=== PATIENT | female | born 2000 | race Caucasian/White ===

== ENCOUNTER 2023-03-31 12:53 | Outpatient (CLI) | payer BC, SELFPAY ==
--- NOTE | 2023-03-31 13:00 | CRLHL7_ITS ---
For Patients: As a result of the Cures Act, medical imaging exams and procedure reports are released immediately into your electronic medical record. You may view this report before your referring provider. If you have questions, please contact your health care provider. INDICATION: First trimester scan, establish dates. COMPARISON: None. TECHNIQUE: Real-time weeks-scale imaging of the pelvis was performed. FINDINGS: Sonographic imaging demonstrates a single living intrauterine gestation. The embryo demonstrates a regular cardiac rate measuring 159 beats per minute. The embryo`s crown-rump length measurement of 6.2 cm corresponds to a gestational age of 12 weeks 4 days with a sonographic due date of 10/09/2023. There is a normal-appearing yolk sac. There are no gross abnormalities noted within the embryo at this early state of development. The gestational sac has a normal appearance. There is no evidence of a perigestational hemorrhage. The amount of fluid within the sac appears appropriate for gestational age. The cervix is closed. The myometrium appears normal. The ovaries are of normal size. Corpus luteal cyst left ovary. There are no suspicious fluid collections noted in the cul-de-sac. IMPRESSION: Normal first trimester OB ultrasound exam. Gestational age calculated at 12 weeks 4 days with a sonographic due date of 10/09/2023. Dictated by Javier Garcia MD @ 03/31/2023 2:13:10 PM (Electronically Signed)
== END 2023-03-31 12:54 | disposition home or self-care (01) ==
LOC: US 12:54
PROVIDERS: Visit Provider Advanced Practice Midwife
DX: Z34.91 Encounter for supervision of normal pregnancy, unspecified, first trimester (principal); Z3A.12 12 weeks gestation of pregnancy
CPT/HCPCS: 76801; 86592; 86703; 86762; 86787; 86803; 86850; 86900; 86901; 87086; 87340

== ENCOUNTER 2023-05-25 13:58 | Outpatient (CLI) | payer BC, SELFPAY ==
--- NOTE | 2023-05-25 14:00 | CRLHL7_ITS ---
For Patients: As a result of the Century Cures Act, medical imaging exams and procedure reports are released immediately into your electronic medical record. You may view this report before your referring provider. If you have questions, please contact your health care provider. INDICATION: Evaluate anatomy. COMPARISON: 03/31/2023 TECHNIQUE: Real time weeks scale imaging of the fetus was performed as well as color Doppler analysis of the umbilical vessels. FINDINGS: Sonographic imaging demonstrates a single living intrauterine gestation. Fetus demonstrates a regular cardiac rate of 152 beats per minute. Fetus has a variable position. The placenta lies anteriorly without evidence of placenta previa. The placental edge is located 8.0 cm from the internal cervical os. Amniotic fluid volume appears normal. Single deepest vertical pocket: 5.2 cm. The cervix is closed and measures 3.4 cm in length. The composite ultrasound gestational age is calculated at 20 weeks 2 days with an estimated sonographic due date of 10/10/2023. The estimated weight is 370 grams which lies at the 59th %. The following biometric measurements were obtained: Biparietal diameter: 4.2 cm/19 weeks 5 days 24th% Head circumference: 17.2 cm/19 weeks 6 days 16th% Abdominal circumference: 16.6 cm/20 weeks 5 days 81st% Femur length: 3.2 cm/19 weeks 6 days 22nd% The HC/AC ratio measures: 1.04 range (1.07-1.25) On anatomic survey, there is a normal appearance of the cerebral ventricles, cavum septi pellucidi, cisterna magna and cerebellum. The nose, lips, and facial profile appear normal. The cervical, thoracic and lumbar spine are well visualized and appear normal. There is a normal four-chamber heart view and the left and right ventricular outflow tracts appear normal. The diaphragm and stomach appear normal. The kidneys and bladder also appear normal. There is a normal three-vessel cord and cord insertion site. The four extremities appear normal. IMPRESSION: Normal OB ultrasound exam with concordance of clinical and sonographic dating. No intrinsic abnormalities noted on anatomic survey. Dictated by Javier Garcia MD @ 05/26/2023 10:04:29 AM (Electronically Signed)
== END 2023-05-25 13:59 | disposition home or self-care (01) ==
LOC: US 13:59
PROVIDERS: Visit Provider Advanced Practice Midwife
DX: Z34.92 Encounter for supervision of normal pregnancy, unspecified, second trimester (principal); Z3A.20 20 weeks gestation of pregnancy
CPT/HCPCS: 76805

== ENCOUNTER 2023-07-10 09:32 | Outpatient (CLI) | payer BC, SELFPAY | END 2023-07-10 09:33 | disposition home or self-care (01) | LOC: NFLDREF 07-12 12:28 | PROVIDERS: Visit Provider Advanced Practice Midwife | DX: Z34.82 Encounter for supervision of other normal pregnancy, second trimester (principal); Z3A.27 27 weeks gestation of pregnancy | CPT/HCPCS: 86592 ==

== ENCOUNTER 2023-07-25 17:40 | Outpatient (CLI) | payer BC, SELFPAY ==
--- NOTE | 2023-07-25 18:51 | PC.OBNST ---
NST Note NST Note Start: 07/25/23 18:00 Freq: ONCE Status: Active Protocol: Document 07/25/23 18:30 ABP (Rec: 07/25/23 18:51 ABP [id number]) NST Note 3 Para (# of births) 2 EDC 10/09/23 Gestational Age In Weeks & Days 29 Weeks & 1 Days Patient Presented with Complaint(s) of Decreased movement Other Complaints Decreased movement and sore upper abdominal muscles Reactive Yes Appropriate for Gestational Age Yes TAMMY Reyes RN Date 07/25/23 Reactive Yes Appropriate for Gestational Age Yes TAMMY Ford CNM Date 07/25/23 OB NST charge Yes Complete NST Note via Write Note Yes The provider's electronic signature indicates the NST is reactive/appropriate for gestational age. *Note to provider: If an addendum is required, open the patient's chart and click on the note under the Nurse/Allied Health tab.
== END 2023-07-25 18:35 | disposition home or self-care (01) ==
LOC: OB OUT 17:46 → OB 17:47
PROVIDERS: Visit Provider Advanced Practice Midwife
DX: O36.8130 Decreased fetal movements, third trimester, not applicable or unspecified (principal); Z3A.29 29 weeks gestation of pregnancy
CPT/HCPCS: 59025; 99213

== ENCOUNTER 2023-09-11 15:55 | Outpatient (CLI) | payer BC, SELFPAY | END 2023-09-11 15:56 | disposition home or self-care (01) | LOC: NFLDREF 09-13 06:24 | PROVIDERS: Visit Provider Advanced Practice Midwife | DX: Z34.93 Encounter for supervision of normal pregnancy, unspecified, third trimester (principal) | CPT/HCPCS: 87081; 87653 ==

== ENCOUNTER 2023-10-08 19:27 | Inpatient (IN) | payer BC, SELFPAY ==
[2023-10-08 18:27] VITALS: BP 133/66; PULSE 108; PULSE 109; RESP 18; TEMP 36.6; O2SAT 97
[2023-10-08 19:04] LABS: Amnisure Rom* POSITIVE
[2023-10-08 20:00] VITALS: TEMP 36.7
[2023-10-08] MEDS: CALCIUM CARBONATE 500 MG CHEW PO (20:29)
[2023-10-08 21:00] VITALS: TEMP 36.7
[2023-10-08 22:00] VITALS: TEMP 36.7
--- NOTE | 2023-10-08 22:07 | W.PM.LDBA ---
Subjective History of Present Illness Narrative: Patient is being admitted to Labor and Delivery for SROM at 0800 with clear fluid at home. She startied having contractions aroun 1300. They increased enough by this evening that she decided to be evaluated. SROm was confirmed by a positive amnisure. She is a 22 year old at 39.6 weeks gestation. Her full history and physical was dictated by [] on []. Please see this for details. [] Specific Issues/Plans : Dhruv Every other week visits due to finishing school, cosmetology, per her request. She is done near her due date. 1. Prepregnancy BMI 39 Losing weight prior to , down 9lb at NOB testing Guidelines recommend considering weekly NST beginning at 37 weeks: NST 2. Hx of Vacuum extraction, 1st , due to heart tones COVID: initial series, not boosted Flu: ask during flu season: 08/14/2023 declines TDAP: declines 32wk Mental Health: 08/14/2023 OB Exam Physical Exam Vital signs: Temp Pulse Resp BP Pulse Ox 97.9 F 108 H 18 133/66 97 10/08/23 18:27 10/08/23 18:27 10/08/23 18:27 10/08/23 18:27 10/08/23 18:27
--- NOTE | 2023-10-08 22:11 | PM.OBHPAP1 ---
OB - H&P; HPI Antepartum History of Present Illness Date Seen: 10/08/23 Chief complaint: Maternity Narrative: Patient is being admitted to Labor and Delivery for SROM with clear fluid at 0800. she starting having contractions around 1300. She decided to be evaluated this evening after her contractions increased in frequency and intensity.? She is a 22 year old at 39 Weeks, 6 Days gestation.?She is breasting through some contractions but not not feeling all of them very intensely. She is continuing to leak clear fluid. She declined a SVE on admit but was agreeable to one with my evaluation. She was found to be 2/80/-2 and the cervix is off to the right. We discussed expectant management vs Pitocin augmentation and the risks and benefits of both. She was educated on and is aware of the increased risk of infection after 24 hours of ruptured membranes. she would like to proceed with expectant management. She is agreeable to labor circuits and reevaluating the need for Pitocin around 18 hours after ROM. 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 Specific Issues/Plans : Dhruv Every other week visits due to finishing school, cosmetology, per her request. She is done near her due date. 1. Prepregnancy BMI 39 Losing weight prior to , down 9lb at NOB testing Guidelines recommend considering weekly NST beginning at 37 weeks: NST 2. Hx of Vacuum extraction, 1st , due to heart tones COVID: initial series, not boosted Flu: ask during flu season: 08/14/2023 declines TDAP: declines 32wk Mental Health: 08/14/2023 History of Present Dating criteria: based on 1st trimester US only care: good care (fewer visit at the end due to schooling and social situation ) Ultrasounds: normal 1st trimester US and other (normal anatomy scan) Medical complications: none Labs Blood type: A (+) positive GBS status: negative Review of Systems Status of ROS: Reports: 6 or more systems reviewed and unremarkable except as noted in History and below : Reports: vaginal discharge (SROM) Meds Home Medications and Allergies Home Medications Medication Instructions Recorded Confirmed Type vit no.95-ferrous 1 tab PO DAILY 07/25/23 10/02/23 History fumarate 28 mg-folic acid 800 mcg tablet () Allergies Allergy/AdvReac Type Severity Reaction Status Date / Time No Known Drug Allergies Allergy Verified 10/02/23 15:04 OB - H&P: Exam Physical Exam: Vital signs: Temp Pulse Resp BP Pulse Ox 97.9 F 108 H 18 133/66 97 10/08/23 18:27 10/08/23 18:27 10/08/23 18:27 10/08/23 18:27 10/08/23 18:27 Narrative: Psychiatric:? Alert and oriented x3? HEENT:? Normocephalic, atraumatic? Neck:? Supple without adenopathy or thyromegaly? Lungs:? Clear to auscultation bilaterally? Heart:? Regular rate and rhythm, no murmur, rub or gallop? Abdomen:? Soft, nontender, and gravid? Extremities:? No edema or erythema? Pelvic:? SVE: 2cm/80%/-2? Membrane status:? SROM, clear? presentation:? vertex? FHT:? Moderate Variability.? Positive Accels.? No Decels. Baseline 120.? Morning Sun:? Ctx Q2-4min? OB - A/P Antepartum Assessment and Plan (1) SROM (spontaneous rupture of membranes): Status: Acute (2) Pain during labor: Status: Acute Plan ASSESSMENT:? at 39.6 weeks gestation? GBS negative? Uncomplicated ? PROM ?? PLAN:? 1. Reviewed risks and benefits of augmentation with Pitocin vs expectant management. Pt prefers expectant management at this time. Will consider Pitocin later.? 3. Desires water . Consent signed. Hep C negative.? 4. Candidate for analgesia of choice. Planning unmedicated .? 5. Anticipate ? 7. IV if condition changes and intermittent monitoring unless patient condition changes.? ? Additional Plan Plan: expectant management
[2023-10-08 23:06] VITALS: TEMP 36.9
[2023-10-09] VITALS (82 sets, daily range): BP systolic 80–145; BP diastolic 44–72; PULSE 64–206; RESP 16–18; TEMP 36.5–37.2; O2SAT 78–100
[2023-10-09] MEDS: LACTATED RINGERS 1000 ML 1,000 ML 125 ML IV ×3 (04:23→15:25)
[2023-10-09] MEDS: OXYTOCIN 30 unit/500 ML in NS 30 UNIT/500 ML BAG IVPB (04:24)
--- NOTE | 2023-10-09 08:32 | P.OBPN_ITS ---
Subjective Date Seen: 10/09/23 Narrative: ?Trudy is feeling tired and discouraged this morning with labor pain/co ntractions. Dhruv and Alix? is with her for support. ?She would like to continue with breathing and relaxation for comfort and pain management. Discussed options moving forward this morning. She is uncomfortable with some contractions but they have not been increasing in intensity. Reviewed option to continue with IV Pitocin per protocol, AROM of second bag of membranes if appropriate, taking a short break from Pitocin for rest and restarting again and IV MS with Vistaril for rest offered. She would like to take a 2 hour break from IV Pitocin and then restart per protocol. Declines MS and Vistaril at this time. SVE 4cm/80%/-1 baby not well applied. Did not feel secondary bag with check at this time. Will plan to restart IV Pitocin around 1030 unless she is laboring on her own at that time. Encouraged rest and food now. Salma/Magdalena applied for monitoring, baby has been difficult to keep on the external monitor, offered FSE, pt declined at this time. Objective Exam: VSS, afebrile General Appearance:? Calm, cooperative. ?No acute distress. ? Psychiatric Exam: Alert and oriented, appropriate affect Abdomen: Gravid Ctx: ?Q 2-4 min apart. ? ?Moderate ? FHTs: ?Baseline: 125. ? ? Variability: moderate. ?Accels: +. ? ?Decels: ?-. SVE: 4/80%/-1 Membranes: ?SROM X 24 hours Vital Signs: Last Vital Signs Temp 98.3 F 10/09/23 08:01 Pulse 81 10/09/23 08:01 Resp 16 10/09/23 08:01 BP 125/67 10/09/23 08:01 Pulse Ox 96 10/09/23 01:00 Plan Plan: Assessment:?? at 40.0 gestation?? GBS negative Patient is coping with challenges of labor.?? Labor type: Augmented, Early labor? complicated by: uncomplicated Labor complicated by: PROM? Plan:?? Approximate 2 hour break from IV Pitocin, restart around 1030. Encouraged rest and food, pt may have MS and Vistaril if desired for sleep. Continue with routine intrapartum cares as ordered.?? Patient encouraged to move and change positions to promote physiologic labor and .?? Nonpharmacologic comfort measures per patient preference. Candidate for analgesia of choice if desired. Patient planning waterbirth Anticipate progress to NVD. ?
--- NOTE | 2023-10-09 10:40 | PM.OBPNL ---
Subjective Date Seen: 10/09/23 Narrative: ?Trudy is coping well with labor pain/contractions, she looks and feels more rested at this time and is ready to restart augmentation with IV Pitocin. ?Dhruv is with her for support. ?She would like to continue with breathing and relaxation for comfort and pain management.?She has had two spontaneous variable decelerations that resolved with position change. Objective Exam: VSS, afebrile General Appearance:? Calm, cooperative. ?No acute distress. ? Psychiatric Exam: Alert and oriented, appropriate affect Abdomen: Gravid Ctx: ?Q 2-4 min apart. ?Mild ? ? FHTs: ?Baseline: 120. ? ? Variability: moderate. ?Accels: +. ? ?Decels: ?variables, nonrecurrent . SVE: deferred Membranes: ?SROM X 26 hours Vital Signs: Last Vital Signs Temp 98.4 F 10/09/23 08:31 Pulse 81 10/09/23 08:01 Resp 16 10/09/23 08:31 BP 125/67 10/09/23 08:01 Pulse Ox 96 10/09/23 01:00 Plan Plan: Assessment:?? at 40.0 gestation?? GBS negative Patient is coping well with challenges of labor.?? Labor type: Augmented, Early labor? complicated by: uncomplicated Labor complicated by: PROM? Plan:?? Restart IV Pitocin per protocol Continuous monitoring with argumentation with IV Pitocin Continue with routine intrapartum cares as ordered.?? Patient encouraged to move and change positions to promote physiologic labor and .?? Nonpharmacologic comfort measures per patient preference. Candidate for analgesia of choice if desired. Patient planning waterbirth Anticipate progress to NVD. ?
[2023-10-09] MEDS: CALCIUM CARBONATE 500 MG CHEW PO (11:10)
[2023-10-09] MEDS: LIDOCAINE 2% (PF) 5 ML VIAL EPIDURAL (13:42)
[2023-10-09] MEDS: ROPIVACAINE 0.2 % PF 10 ML INJ 20 MG EPIDURAL (13:42)
[2023-10-09] MEDS: PHENYLEPHRINE 100 MCG/ML SYRINGE IVP ×8 (13:44→15:38)
[2023-10-09] MEDS: fentaNYL 100 MCG/2 ML inj EPIDURAL (13:47)
[2023-10-09] MEDS: ePHEDrine sulfate 5 MG/ML inj 10 MG IVP ×3 (14:34→15:18)
--- NOTE | 2023-10-09 14:55 | P.ANBPRC_ITS ---
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 Partner: suze Bartlett man Lives with: Dhruv and two children (Miguel Angel and Luis Alberto) Pets: 2 dogs Abuse: Denies past/present Special Diet: Denies, pro-metabolic eating; was loosing weight prior to Ok with a blood transfusion: yes Culture or buddhism beliefs: denies RISK FACTORS Exercise Times/wk: walking 2-4x per week Depression/Anxiety: Denies hx of Seat Belt Use: Routinely Smoking: Denies past/present Alcohol/day: Denies while ; none Caffeine: Tea occasionally Drug Use: Denies past/present Chicken Pox: Vaccinated MRSA: Denies What is your current living situation?: I presently have a place to live Problems where you live: no known problems In the past 12 months, utilities in danger of being shut off: no In past 12 months, lack of transportation kept you from medical appts, meetings, work, or getting things needed for daily living: no In the past 12 mos, have been you worried that your food would run out before you had money to buy more?: never true In the past 12 mos, the food you bought just didn't last and you didn't have money to buy more?: never true Smoking Status: Never smoker How often does anyone, including family, friends and others, physically hurt you : never How often does anyone, including family, friends and others, insult or talk down to you: never How often does anyone, including family, friends and others, threaten you with harm: never How often does anyone, including family, friends and others, scream or curse at you: never Little interest or pleasure in doing things: not at all Feeling down, depressed, or hopeless: not at all Meds Home Medications and Allergies Home Medications Medication Instructions Recorded Confirmed Type vit no.95-ferrous 1 tab PO DAILY 07/25/23 10/02/23 History fumarate 28 mg-folic acid 800 mcg tablet () Allergies Allergy/AdvReac Type Severity Reaction Status Date / Time No Known Drug Allergies Allergy Verified 10/02/23 15:04 Results Labs Labs: Laboratory Results - last 24 hr 10/08/23 18:40 Membrane Rupture POSITIVE Vital Signs Vital Signs: Last Vital Signs Temp 98.8 F 10/09/23 12:40 Pulse 93 10/09/23 14:54 Resp 16 10/09/23 12:40 BP 91/51 L 10/09/23 14:54 Pulse Ox 98 10/09/23 14:54 Weight: 109.044 kg Anesthesia Procedures Epidural Insertion Patient Location: OB Start Time: 13:30 Stop Time: 14:30 Start Date: 10/09/23 Stop Date: 10/09/23 Reason for Block: procedure for pain Patient Position: sitting Performed By: Nick Tyler Preanesthetic Checklist: IV checked, risks and benefits discussed, monitors and equipment checked, pre-op evaluation, timeout performed and anesthesia consent Prep: chlorhexidine gluconate Monitoring: blood pressure monitoring, continuous pulse oximetry and heart rate Approach: midline Vertebral Space: lumbar (1-5) Epidural Technique: DARCY saline Needle Type: Tuohy needle Injection Technique: continuous catheter Needle gauge: 17 Needle Length (cm): 10 cm Needle Insertion Depth (cm): 6 Catheter Gauge: 19 Catheter Type: multi-orifice Catheter at skin depth (cm): 12 Test Dose Result: negative and lidocaine 1.5% with epinephrine 1 to 200,000
--- NOTE | 2023-10-09 15:01 | PM.OBPNL ---
Subjective Date Seen: 10/09/23 Narrative: ?Trudy is coping well with labor pain/contractions. ?Dhruv is with her for support. ?She recently got an epidural for comfort and pain management.?She had a second rupture of membranes around 1310 with copious clear fluid then became more painful and requested an epidural for pain and fatigue. She used Nitrous for pain management while waiting for the epidural to be placed. Is currently comfortable with epidural running, feeling only slight pressure with contractions. IV Pitocin was stopped for short time while epidural was placed, restarted and currently running at 4mu/hr. Objective Exam: VSS, afebrile General Appearance:? Calm, cooperative. ?No acute distress. ? Psychiatric Exam: Alert and oriented, appropriate affect Abdomen: Gravid Ctx: ?Q 1-3 min apart. ? ?Moderate ? FHTs: ?Baseline: 120. ? ? Variability: moderate. ?Accels: +. ? ?Decels: ?variable and early, nonrecurrent. SVE: 7/80/-3 Membranes: ?SROM ?X 32 hours Vital Signs: Last Vital Signs Temp 98.8 F 10/09/23 12:40 Pulse 99 10/09/23 14:58 Resp 16 10/09/23 12:40 BP 100/55 L 10/09/23 14:58 Pulse Ox 100 10/09/23 14:59 Contractions Pitocin Rate (mU/min): 4 Assessment Status: Category ll Plan Plan: Assessment:?? at 40.0 gestation?? GBS negative Patient is coping well with challenges of labor.?? Labor type: Augmented,Active labor? Category 2 FHR pattern.? complicated by: uncomplicated Labor complicated by: PROM? Plan:?? Augmentation with IV Pitocin titrate per protocol and patient response. Continue with routine intrapartum cares as ordered.?? Patient encouraged to move and change positions to promote physiologic labor and .?? Nonpharmacologic comfort measures per patient preference. Epidural in place for pain management. Anticipate progress to NVD. ?
[2023-10-09] MEDS: OXYTOCIN 30 unit/500 ML in NS 30 UNIT/500 ML BAG 300 UNIT IVPB (16:02)
--- NOTE | 2023-10-09 16:18 | W.PM.OBVAGDE ---
OB Procedure Vag Delivery Mother Details Mother Details: The patient is a 22 year-old, 3, Para 2, admitted on 10/08/23 at 39.6 Days gestation with SROM. : 3 Para: 3 Weeks Gestation: 40.0 Admission Date: 10/08/23 Additional Details Amniotic Membrane Status: SROM Amniotic Membrane Rupture Date: 10/08/23 Amniotic Membrane Rupture Time: 08:00 Amniotic Membrane Fluid Description: Clear Analgesia/Anesthesia Type: Epidural Waterbirth: No Pitcoin: Yes Intrapartal Events: Labor Augmentation and ROM >18 Hours Delivery augmentation: pitocin Labor Onset: 13:11 Complete: 15:42 Pushin:46 Heart: heart tones during second stage were Category II, for last 9 minutes of pushing variables to 60's with recovery to 90's between pushing, pt made good progress with pushing. Delivery Details Delivery Date: 10/09/23 Delivery Time: 16:01 Route of delivery: Gender: Male Viability: Alive; Heart Rate Present Position at Delivery: OA Delivery Details: 22?y.o?at 40.0 weeks.? Trudy came on 10/08/23 with SROM of clear fluid, she was augmented with IV Pitocin and made slow change overnight. Short break this morning from IV Pitocin for 2 hours then restarted augmentation. She had SROM of second bag of fluid at 1311. She received an epidural for pain management and progressed to complete after that. ? She became complete at 1542.??She pushed in right tilt positions effectively.? Spontaneous vaginal delivery at 1601 of?a viable?male infant.??Delivered in vertex OA position.??Shoulders delivered easily.?There was a cord around the shoulder unable to reduce at delivery, delivered through and cord brought over the shoulder and under the infants arm for delivery of the body Spontaneous cry noted.??Infant placed on maternal abdomen.??Cord?was clamped and cut after a >30 sec delay.?? brought to the warmer for stimulation and further evaluation. At 10 minutes of age infant was pink and crying at the warmer.? Shoulder dystocia: no? Nuchal cord: no? Meconium stained?fluid: no? Water : no? ? ? 5 at 1 minute and 9 at 5 minutes.? ? Placenta delivered spontaneously and?complete?at 1508 with a?3 vessel?cord.?? Bleeding controlled with fundal massage and?pitocin?for AMTSL.? ? Mother and infant were stable after delivery.? ? Lacerations:? 1st degree perineal and right labial laceration, not bleeding, not repaired? ? Bleeding?post delivery?was: minimal. ?The fundus was firm to palpation.? Blood loss: 25?mL.? Blood loss measurement type: QBL? ? ? Sponge,?lap?and needles counts are correct.? Mother and were stable after delivery.? 1 Minute Interval Total Score: 5 5 Minute Interval Total Score: 9 Additional Details Shoulder Dystocia: No Placenta Delivery Time: 15:08 Placental Delivery Description: Spontaneous Procedure Done: Global Blood Loss: 25 Laceration: Perineal - 1st Degree (not bleeding not repaired) Blood Loss Measurement Type: QBL Bakri Used: No Sponge/Need Count Correct: Yes Cord Vessel Description: 3 Vessels, Tight, Around Body and Delivered through Event Summary Status: Mother and were stable after delivery. Disposition: floor
[2023-10-09] MEDS: IBUPROFEN 600 MG TABLET PO (17:26)
[2023-10-09] MEDS: LANOLIN CREAM 1 APPLIC TOPICAL (17:26)
[2023-10-10] MEDS: IBUPROFEN 600 MG TABLET PO ×2 (01:45→08:49)
[2023-10-10 03:31] VITALS: BP 97/68; PULSE 90; RESP 18; TEMP 36.6
--- NOTE | 2023-10-10 07:28 | PM.OBDSVD1 ---
DS: Providers Provider Date Seen: 10/10/23 Date of admission: 10/08/23 19:27 Primary care physician: Not a Local Provider Admitting Clinician: Jerri Irby CNM Attending Physician on discharge: Jerri Irby CNM Date of Discharge: 10/10/23 DS: Diagnosis Discharge Diagnosis (1) Lactating mother: Status: Acute (2) care following vaginal delivery: Status: Acute Exam Narrative: Exam Narrative: GENERAL APPEARANCE:? normal affect, alert, no distress? MOOD:? appropriate? CHEST:? clear to auscultation and percussion? HEART:? regular rate and rhythm? ABDOMEN:? soft, non-tender the uterine fundus is U/2 and is appropriate for the stage of recovery.? PERINEUM:? mild edema of the perineum, there is a 1st degree that is healing well.? EXTREMITIES:? normal and no edema? Const: Vital Signs, click to edit/add: Vital Signs - 24 hr 10/09/23 08:01 10/09/23 08:01 10/09/23 08:31 Temperature 98.3 F 98.4 F Pulse Rate 81 Pulse Rate [Pulse Oximeter] Respiratory Rate 16 16 Blood Pressure 125/67 Blood Pressure [Ri ght Arm] Pulse Oximetry Oxygen Delivery Me thod 10/09/23 09:31 10/09/23 10:38 10/09/23 11:55 Temperature 98.2 F 98.1 F Pulse Rate 84 Pulse Rate [Pulse Oximeter] Respiratory Rate Blood Pressure 110/55 L Blood Pressure [Ri ght Arm] Pulse Oximetry Oxygen Delivery Me thod 10/09/23 11:55 10/09/23 12:40 10/09/23 13:49 Temperature 98.2 F 98.8 F Pulse Rate Pulse Rate [Pulse Oximeter] Respiratory Rate 16 16 Blood Pressure Blood Pressure [Ri ght Arm] Pulse Oximetry 79 L Oxygen Delivery Me thod 10/09/23 13:49 10/09/23 13:49 10/09/23 13:49 Temperature Pulse Rate 206 H Pulse Rate [Pulse Oximeter] Respiratory Rate Blood Pressure 102/72 Blood Pressure [Ri ght Arm] Pulse Oximetry 98 Oxygen Delivery Me thod 10/09/23 13:49 10/09/23 13:54 10/09/23 13:55 Temperature 98.6 F Pulse Rate 120 H Pulse Rate [Pulse Oximeter] Respiratory Rate 16 Blood Pressure 145/69 H Blood Pressure [Ri ght Arm] Pulse Oximetry 99 Oxygen Delivery Me thod 10/09/23 13:57 10/09/23 13:59 10/09/23 14:04 Temperature Pulse Rate Pulse Rate [Pulse Oximeter] Respiratory Rate Blood Pressure Blood Pressure [Ri ght Arm] Pulse Oximetry 93 95 97 Oxygen Delivery Me thod 10/09/23 14:09 10/09/23 14:10 10/09/23 14:14 Temperature Pulse Rate 104 H Pulse Rate [Pulse Oximeter] Respiratory Rate Blood Pressure 136/69 Blood Pressure [Ri ght Arm] Pulse Oximetry 99 99 Oxygen Delivery Me thod 10/09/23 14:17 10/09/23 14:19 10/09/23 14:21 Temperature Pulse Rate 94 Pulse Rate [Pulse Oximeter] Respiratory Rate Blood Pressure 136/65 Blood Pressure [Ri ght Arm] Pulse Oximetry 98 94 Oxygen Delivery Me thod 10/09/23 14:23 10/09/23 14:28 10/09/23 14:30 Temperature Pulse Rate 126 H 112 H 71 Pulse Rate [Pulse Oximeter] Respiratory Rate Blood Pressure 132/57 L 89/48 L 100/52 L Blood Pressure [Ri ght Arm] Pulse Oximetry Oxygen Delivery Me thod 10/09/23 14:32 10/09/23 14:34 10/09/23 14:36 Temperature Pulse Rate 73 67 73 Pulse Rate [Pulse Oximeter] Respiratory Rate Blood Pressure 84/49 L 86/51 L 111/56 L Blood Pressure [Ri ght Arm] Pulse Oximetry 100 Oxygen Delivery Me thod 10/09/23 14:38 10/09/23 14:39 10/09/23 14:40 Temperature Pulse Rate 71 69 Pulse Rate [Pulse Oximeter] Respiratory Rate Blood Pressure 114/57 L 95/49 L Blood Pressure [Ri ght Arm] Pulse Oximetry 99 Oxygen Delivery Me thod 10/09/23 14:42 10/09/23 14:44 10/09/23 14:46 Temperature Pulse Rate 71 82 78 Pulse Rate [Pulse Oximeter] Respiratory Rate Blood Pressure 97/55 L 87/51 L 106/52 L Blood Pressure [Ri ght Arm] Pulse Oximetry 99 Oxygen Delivery Me thod 10/09/23 14:48 10/09/23 14:49 10/09/23 14:50 Temperature Pulse Rate 83 81 Pulse Rate [Pulse Oximeter] Respiratory Rate Blood Pressure 104/53 L 104/57 L Blood Pressure [Ri ght Arm] Pulse Oximetry 100 Oxygen Delivery Me thod 10/09/23 14:52 10/09/23 14:54 10/09/23 14:56 Temperature Pulse Rate 88 93 92 Pulse Rate [Pulse Oximeter] Respiratory Rate Blood Pressure 102/53 L 91/51 L 90/51 L Blood Pressure [Ri ght Arm] Pulse Oximetry 98 Oxygen Delivery Me thod 10/09/23 14:58 10/09/23 14:59 10/09/23 15:01 Temperature Pulse Rate 99 83 Pulse Rate [Pulse Oximeter] Respiratory Rate Blood Pressure 100/55 L 90/51 L Blood Pressure [Ri ght Arm] Pulse Oximetry 100 Oxygen Delivery Me thod 10/09/23 15:04 10/09/23 15:06 10/09/23 15:08 Temperature Pulse Rate 90 81 72 Pulse Rate [Pulse Oximeter] Respiratory Rate Blood Pressure 80/44 L 88/51 L 97/53 L Blood Pressure [Ri ght Arm] Pulse Oximetry 100 Oxygen Delivery Me thod 10/09/23 15:09 10/09/23 15:10 10/09/23 15:12 Temperature Pulse Rate 65 77 Pulse Rate [Pulse Oximeter] Respiratory Rate Blood Pressure 99/50 L 98/52 L Blood Pressure [Ri ght Arm] Pulse Oximetry 100 Oxygen Delivery Me thod 10/09/23 15:14 10/09/23 15:16 10/09/23 15:18 Temperature Pulse Rate 103 H 76 83 Pulse Rate [Pulse Oximeter] Respiratory Rate Blood Pressure 93/47 L 98/51 L 87/51 L Blood Pressure [Ri ght Arm] Pulse Oximetry 100 Oxygen Delivery Me thod 10/09/23 15:19 10/09/23 15:20 10/09/23 15:22 Temperature Pulse Rate 90 77 Pulse Rate [Pulse Oximeter] Respiratory Rate Blood Pressure 101/55 L 102/51 L Blood Pressure [Ri ght Arm] Pulse Oximetry 98 Oxygen Delivery Me thod 10/09/23 15:24 10/09/23 15:26 10/09/23 15:28 Temperature Pulse Rate 85 96 102 H Pulse Rate [Pulse Oximeter] Respiratory Rate Blood Pressure 104/55 L 100/54 L 97/55 L Blood Pressure [Ri ght Arm] Pulse Oximetry 100 Oxygen Delivery Me thod 10/09/23 15:29 10/09/23 15:30 10/09/23 15:32 Temperature Pulse Rate 104 H 88 Pulse Rate [Pulse Oximeter] Respiratory Rate Blood Pressure 91/54 L 97/55 L Blood Pressure [Ri ght Arm] Pulse Oximetry 100 Oxygen Delivery Me thod 10/09/23 15:34 10/09/23 15:36 10/09/23 15:38 Temperature Pulse Rate 99 93 66 Pulse Rate [Pulse Oximeter] Respiratory Rate Blood Pressure 101/59 L 91/54 L 90/55 L Blood Pressure [Ri ght Arm] Pulse Oximetry 100 Oxygen Delivery Me thod 10/09/23 15:39 10/09/23 15:40 10/09/23 15:44 Temperature Pulse Rate 83 Pulse Rate [Pulse Oximeter] Respiratory Rate Blood Pressure 99/65 Blood Pressure [Ri ght Arm] Pulse Oximetry 100 100 Oxygen Delivery Me thod 10/09/23 15:46 10/09/23 15:51 10/09/23 15:59 Temperature Pulse Rate Pulse Rate [Pulse Oximeter] Respiratory Rate Blood Pressure Blood Pressure [Ri ght Arm] Pulse Oximetry 92 100 78 L Oxygen Delivery Me thod 10/09/23 16:02 10/09/23 16:07 10/09/23 16:07 Temperature Pulse Rate 141 H 102 H Pulse Rate [Pulse Oximeter] 102 H Respiratory Rate Blood Pressure 134/65 111/53 L Blood Pressure [Ri ght Arm] 111/53 L Pulse Oximetry Oxygen Delivery Me thod 10/09/23 16:19 10/09/23 16:19 10/09/23 16:33 Temperature 97.7 F Pulse Rate 109 H Pulse Rate [Pulse Oximeter] 109 H 93 Respiratory Rate Blood Pressure 91/52 L Blood Pressure [Ri ght Arm] 91/52 L 104/56 L Pulse Oximetry Oxygen Delivery Me thod 10/09/23 16:34 10/09/23 16:49 10/09/23 16:49 Temperature Pulse Rate 93 91 Pulse Rate [Pulse Oximeter] 91 Respiratory Rate Blood Pressure 104/56 L 106/59 L Blood Pressure [Ri ght Arm] 106/59 L Pulse Oximetry Oxygen Delivery Me thod 10/09/23 17:04 12/25/23 17:04 10/09/23 17:19 Temperature Pulse Rate 78 92 Pulse Rate [Pulse Oximeter] 78 Respiratory Rate Blood Pressure 106/61 135/63 Blood Pressure [Ri ght Arm] 106/61 Pulse Oximetry Oxygen Delivery Me thod 10/09/23 17:19 10/09/23 17:34 10/09/23 17:34 Temperature 97.8 F Pulse Rate 66 Pulse Rate [Pulse Oximeter] 92 66 Respiratory Rate Blood Pressure 122/58 L Blood Pressure [Ri ght Arm] 135/63 122/58 L Pulse Oximetry Oxygen Delivery Me thod 10/09/23 17:49 10/09/23 17:49 10/09/23 18:04 Temperature Pulse Rate Pulse Rate [Pulse Oximeter] 81 Respiratory Rate Blood Pressure 124/58 L 109/57 L Blood Pressure [Ri ght Arm] 124/58 L Pulse Oximetry Oxygen Delivery Me thod 10/09/23 18:19 10/09/23 23:55 10/10/23 03:31 Temperature 97.9 F 97.9 F Pulse Rate 75 Pulse Rate [Pulse Oximeter] 71 90 Respiratory Rate 16 18 Blood Pressure 118/66 Blood Pressure [Ri ght Arm] 117/52 L 97/68 Pulse Oximetry 96 Oxygen Delivery Me thod Room Air Room Air Documenting provider has reviewed patient's vital signs: yes OB - DS: Summary Hospital Course Hospital Course: The patient is a 22 year old G 3 P 3 at 40.0 weeks gestation that was admitted to the Center on 10/08/23 for SROM. She had an uncomplicated vaginal delivery. She delivered a viable male infant. She is breast feeding and states that it is going very good. the patient has done well. Pain is well controlled with current medications.? She has no new complaints.? Urinary output is adequate and she is voiding without difficulty.? Has a good appetite, is tolerating a general diet, is passing flatus, and has not had a bowel movement.? Has small amount of rubra lochia.? She is ambulating well.?Her partner is planning a vasectomy for PP control and condoms until it is complete. Peripartum Data delivery method: Vaginal Laceration description: Perineal - 1st Degree (not repaired) Episiotomy description: None complications: none [place] Gender: Male Infant Discharge Plan: Home Status at Discharge Functional status at discharge: independent ambulation Overall status at discharge: patient is progressing back to baseline Time Spent with Patient Time attestation: Total time spent providing and/or coordinating discharge services: Discharge Plan Discharge Disposition: Home, Self-Care Date of Admission: 10/08/23 19:27 Attending Provider on Discharge: Jerri Irby Primary Care Provider: Provider,Not a Local Condition: Stable Anticipated Discharge Date/Time: 10/10/23 18:00 Discharge Medications: New docusate sodium 100 mg Capsule 100 mg PO DAILY Qty: 90 0RF Rx Instructions: Take 1-2 tablets daily as needed for constipation. ibuprofen 600 mg Tablet 600 mg PO Q6H PRNQty: 30 0RF Continued PNV cmb#95-ferrous fumarate-FA [] 28 mg iron- 800 mcg tablet 1 tab PO DAILY Discharge Orders: Discharge Order (Routine); Ordered 10/10/23 Ordered By: Jerri Irby Patient Education: OB Vaginal/Breast Feeding Additional Instructions: Discharge instructions were reviewed with the patient including signs and symptoms of infection and home going medications.? Lifting Restrictions: 20 pounds for 6? weeks? ?? Do not drive while taking narcotic pain meds.? Off Work or School for 6 weeks.? ?? Symptoms to report to doctor:? -Bleeding that saturates more than one pad per hour? -Passing clots larger than the size of a golf ball? -Pain not relieved by prescribed medication? -Fever above 100.4 degrees Fahrenheit? -A foul vaginal odor? -Difficulty in emotions, mood and functions? -Thoughts of hurting yourself and/or ? -Painful, reddened area in your breast? -Any drainage, redness or tenderness in your IV/epidural site? -Severe headache that doesn't improve after taking medications? -Changes in vision, including temporary loss of vision, blurred vision, and/or light sensitivity? -Upper abdominal pain (usually under ribs on the right side)? -Decrease in urination or painful, frequent urinating? -Chest pain? -Shortness of breath? -Tenderness or pain with redness and/swelling in the calf(s) of your leg? ?? Follow Up in clinic in 2 and 6 weeks.? ?? consultation services are available to all mothers and babies for the first year after delivery.? To make an appointment, please call [phone].? Activity Level: Activity as Tolerated Discharge Diet: Regular Follow Up Appointments: Provider,Not a Local [Primary Care Provider] - [facility] [Provider Group] Forms: MyHealth Info Instructions
[2023-10-10 07:31] VITALS: BP 99/65; PULSE 93; RESP 16; TEMP 36.4
[2023-10-10] MEDS: DOCUSATE SODIUM 100 MG CAPSULE PO (08:47)
--- NOTE | 2023-10-10 11:36 | PM.ANPOST ---
Post Anesthesia Note Post Anesthesia Note Patient seen: Inpatient Respiratory Status: adequate Cardiovascular Status: adequate Mental Status: baseline Pain: adequate Temp: baseline Anesthetic awareness: N/A Complications: none Follow care: none
[2023-10-10 12:00] VITALS: BP 115/63; PULSE 77; TEMP 36.6
[2023-10-10 15:23] VITALS: BP 107/71; PULSE 78; RESP 16; TEMP 36.7
== END 2023-10-10 17:18 | disposition home or self-care (01) | DRG 560 ==
LOC: OB OUT 19:28 → OB 19:28
PROVIDERS: Admitting Provider Advanced Practice Midwife; Visit Provider Advanced Practice Midwife
DX: O70.0 First degree perineal laceration during delivery (principal); Z3A.39 39 weeks gestation of pregnancy; Z37.0 Single live birth; E66.9 Obesity, unspecified
CPT/HCPCS: 01967; 76815; 84112; A9270; J2371; J2795; J3010; J7120

== ENCOUNTER 2024-12-23 05:16 | Emergency (ER) | payer BC, SELFPAY ==
[2024-12-23 05:44] VITALS: BP 120/85; PULSE 92; RESP 16; TEMP 36.7; O2SAT 98; BMI 40.2
--- NOTE | 2024-12-23 06:11 | ED.GENADULT ---
HPI - General Adult General Chief complaint: Unspecified Complaint, Adult Stated complaint: Dehydrated Time Seen by Provider: 12/23/24 06:11 History of Present Illness HPI narrative: family sick with same. pt started vomiting monday for 12 hours, hasnt vomited since. has had diarrhea and tingle body feeling since monday. denies fevers. pt has been drinking Pedialyte and fluids without vomiting. pt comes to ER stating she feels dehydrated and wants iv fluids . 23-year-old young woman presenting to emergency prior with concern of recent vomiting and concern of dehydration. illness seems to be going through family with similar symptoms. Vomiting began 2 days ago. Has not vomited over the last 24 hours. Has however started to have increased diarrhea. Also concerning is sensation of tingling that has been present over good portions of her body. Generally weak but no focal weaknesses. Getting out of shower she just noted how weak she was today. No rashes noted. She is hoping she might receive some IV fluids for feeling dehydrated. She is quite thirsty. Temperature during this illness was measured up to 100.4. Related Data Home Medications ?Medication ?Instructions ?Recorded ?Confirmed vit no.95-ferrous 1 tab PO DAILY 07/25/23 10/09/23 fumarate 28 mg-folic acid 800 mcg tablet () Previous Rx's ?Medication ?Instructions ?Recorded docusate sodium 100 mg capsule 100 mg PO DAILY #90 caps 10/10/23 ibuprofen 600 mg tablet 600 mg PO Q6H PRN #30 tabs 10/10/23 Allergies Allergy/AdvReac Type Severity Reaction Status Date / Time No Known Drug Allergies Allergy Verified 12/23/24 05:46 Review of Systems Status of ROS: Reports: 6 or more systems reviewed and unremarkable except as noted in History and below [facility] Medical History Hx of delivery by vacuum extraction, currently ?O09.299 - Supervision of with other poor reproductive or obstetric history, unspecified trimester (ICD-10) Irregular menstrual cycle ?N92.6 - Irregular menstruation, unspecified (ICD-10) Vaginal delivery ?O80 - Encounter for full-term uncomplicated delivery (ICD-10) Surgical History [place] teeth extracted ?K08.409 - Partial loss of teeth, unspecified cause, unspecified class (ICD-10) Family History Father Alcohol dependence Heart disease Social History Narrative: SOCIAL Education: Some college 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 Partner: suze Bartlett man Lives with: Dhruv and two children (Miguel Angel and Luis Alberto) Pets: 2 dogs Abuse: Denies past/present Special Diet: Denies, pro-metabolic eating; was loosing weight prior to Ok with a blood transfusion: yes Culture or mu-ism beliefs: denies RISK FACTORS Exercise Times/wk: walking 2-4x per week Depression/Anxiety: Denies hx of Seat Belt Use: Routinely Smoking: Denies past/present Alcohol/day: Denies while ; none Caffeine: Tea occasionally Drug Use: Denies past/present Chicken Pox: Vaccinated MRSA: Denies What is your current living situation?: I presently have a place to live Problems where you live: no known problems In the past 12 months, utilities in danger of being shut off: no In past 12 months, lack of transportation kept you from medical appts, meetings, work, or getting things needed for daily living: no In the past 12 mos, have been you worried that your food would run out before you had money to buy more?: never true In the past 12 mos, the food you bought just didn't last and you didn't have money to buy more?: never true Smoking Status: Never smoker Second hand tobacco smoke exposure: No How often do you have a drink containing alcohol: never AUDIT-C Alcohol total score: 0 Non-prescribed substance use: denies use How often does anyone, including family, friends and others, physically hurt you: never How often does anyone, including family, friends and others, insult or talk down to you: never How often does anyone, including family, friends and others, threaten you with harm: never How often does anyone, including family, friends and others, scream or curse at you: never Exam Narrative: Exam Narrative: Pleasant. NAD. Skin is warm and dry. She is well-perfused peripherally. No extremity edema. Oropharynx is little sticky. Lungs are clear. Heart with mildly elevated rate in a regular rhythm without murmur rub or gallop. Abdomen is soft and little uncomfortable along the upper edge of the abdomen presumably related to recent vomiting. Moving all extremities without difficulty, with good strength. Cranial nerves 2-12 intact Const: Vital Signs, click to edit/add: Vital Signs - 24 hr 12/23/24 05:44 Temperature 98.0 F Pulse Rate [Pulse Oximeter] 92 Respiratory Rate 16 Blood Pressure [Ri ght Upper Arm] 120/85 Pulse Oximetry 98 Oxygen Delivery Me thod Room Air Documenting provider has reviewed patient's vital signs: yes Course Vital Signs Vital signs: Initial Vital Signs Temperature 98.0 F 12/23/24 05:44 Temperature Source Temporal Artery Scan 12/23/24 05:44 Pulse Rate 92 12/23/24 05:44 Respiratory Rate 16 12/23/24 05:44 Blood Pressure 120/85 12/23/24 05:44 Blood Pressure Mean 96 12/23/24 05:44 Blood Pressure Position Sitting 12/23/24 05:44 Pulse Oximetry 98 12/23/24 05:44 Oxygen Delivery Method Room Air 12/23/24 05:44 Vital Signs Temperature 98.0 F 12/23/24 05:44 Pulse Rate 92 12/23/24 05:44 Respiratory Rate 16 12/23/24 05:44 Blood Pressure 120/85 12/23/24 05:44 Pulse Oximetry 98 12/23/24 05:44 Oxygen Delivery Method Room Air 12/23/24 05:44 Temperature 98.0 F 12/23/24 05:44 Pulse Rate 92 12/23/24 05:44 Respiratory Rate 16 12/23/24 05:44 Blood Pressure 120/85 12/23/24 05:44 Pulse Oximetry 98 12/23/24 05:44 Oxygen Delivery Method Room Air 12/23/24 05:44 Medications Administered Medications: Discontinued Medications Generic Name Dose Route Start Last Admin Trade Name Freq PRN Reason Stop Dose Admin Sodium Chloride 1,000 mls @ 1,000 mls/hr 12/23/24 06:21 12/23/24 06:25 0.9 % Sodium Chloride 1000 Ml IV 12/23/24 07:20 1,000 mls/hr .Q1H ONE Administration Ondansetron HCl 4 mg 12/23/24 06:21 12/23/24 06:25 Ondansetron 2 Mg/Ml Inj IVP 12/23/24 06:22 4 mg ONCE ONE Administration Medical Decision Making MDM Narrative Medical decision making narrative: certainly can hydrate and given degree of diarrhea and vomiting is described can check electrolytes. Not sure what to make of this tingling at this point. appears to have gastrointestinal illness nonspecific. this might be related to norovirus or influenza. given a L of normal saline. Labs reveal mildly low potassium. Question is raised about postinfectious GBS. I would like to see more than tingling in global weakness perhaps to initiate spinal tap and brain MRI, the latter I cannot do at this time. Would monitor closely for worsening. Stable, otherwise well during time in the emergency department. See patient discharge plan for further discussion Focus on hydration. Consider reconstituting powdered Gatorade or Powerade. You might for a few days supplement with higher potassium containing foods. I appreciate your concern and if your weakness and tingling, sensory changes, are clearly becoming more intense or dense, please be re-evaluated. As long as you are still having diarrhea without blood in your stool and without fever, could take loperamide if needed. Giving you a prescription for Zofran for nausea from [facility]. Medical Records Medical records reviewed: Yes I reviewed the patient's medical records Lab Data Lab results reviewed: Yes I reviewed the patient's lab results Labs: Lab Results 12/23/24 Range/Units 06:24 Hgb 14.4 (12.0-16.0) gm/dL Sodium 137 (135-149) mmol/L Potassium 3.2 L (3.6-5.1) mmol/L Chloride 103 (96-114) mmol/L Carbon Dioxide 21 (20-32) mmol/L Anion Gap 13 (7-15) mEq/L BUN 8 (5-24) mg/dL Creatinine 0.4 L (0.5-1.5) mg/dL Estimated Creat Clear 170.04 Estimated GFR 141 ml/min Glucose 97 (60-115) mg/dL Calcium 8.3 L (8.4-10.6) mg/dL Discharge Plan Discharge Clinical Impression: Diarrhea, Dehydration, Tingling, Hypokalemia Patient Disposition: Home, Self-Care Condition: Improved Instructions: Dehydration (DC), Hypokalemia (ED) Additional Instructions: Focus on hydration. Consider reconstituting powdered Gatorade or Powerade. You might for a few days supplement with higher potassium containing foods. I appreciate your concern and if your weakness and tingling, sensory changes, are clearly becoming more intense or dense, please be re-evaluated. As long as you are still having diarrhea without blood in your stool and without fever, could take loperamide if needed. Giving you a prescription for Zofran for nausea from [facility]. Prescriptions: No Action docusate sodium 100 mg Capsule 100 mg PO DAILY Qty: 90 0RF Rx Instructions: Take 1-2 tablets daily as needed for constipation. ibuprofen 600 mg Tablet 600 mg PO Q6H PRNQty: 30 0RF PNV cmb#95-ferrous fumarate-FA [] 28 mg iron- 800 mcg tablet 1 tab PO DAILY Follow Up/Referrals: Provider,Not a Local [Primary Care Provider] - Stand Alone Forms: [email or web address] Info Instructions
[2024-12-23] MEDS: 0.9 % SODIUM CHLORIDE 1000 ml 1,000 ML IV (06:25)
[2024-12-23] MEDS: ONDANSETRON 2 MG/ML inj 4 MG IVP (06:25)
[2024-12-23 06:43] LABS: Chloride* 103 mmol/L (96-114); Sodium* 137 mmol/L (135-149)
[2024-12-23 06:44] LABS: Hemoglobin* 14.4 gm/dL (12.0-16.0)
[2024-12-23 06:46] LABS: Anion Gap 13 mEq/L (7-15); Blood Urea Nitrogen* 8 mg/dL (5-24); Calcium* 8.3 mg/dL (8.4-10.6); Carbon Dioxide* 21 mmol/L (20-32); Creatinine* 0.4 mg/dL (0.5-1.5); Est. Creatinine Clearance* 170.04; Estimated Glomerular Filt Rate 141 ml/min; Glucose* 97 mg/dL (60-115)
[2024-12-23 06:53] LABS: Potassium* 3.2 mmol/L (3.6-5.1)
--- OUTSIDE RECORDS SUMMARY | 2024-12-23 07:13 | XMS_ITS | Encounter Summary ---
Author Organization [place] Address [facility] [place] [address] Care Team Providers Care Oil Well Service Operator Helper Name Role Phone Felipe Phillips MD Primary Care Provider [phone] Aisha Patel APRN CNM Unavailable Otilia Rubio APRN CNM Unavailable [phone] Aisha Patel CUSTOMER SUPPORT ASSISTANT CNM Unavailable Reason for Visit * Reason Onset Date Comments Orders 07/26/2021 New OB ultrasoun d Encounter Details Date Type Department Care Team ([facility] st Contact Info) Description 07/26/2021 Telephone [facility] [place] [address] [facility] [address] [place] [address] Aisha Patel APRN CNM [address] [place], [place] [id number] Orders (New OB ultrasound) Social History Tobacco Use Types Packs/Day Years Used Date Smoking Tobacco: Never Smokeless Tobacco: Never Alcohol Use Standard Drinks/Week Comments No 0 (1 standard drink = 0.6 oz pur e alcohol) PHQ-2 Answer Date Recorded PHQ-2 Score 0 10/24/2018 Comments No Sex and Gender Information Value Date Recorded Sex Assigned at Not on file 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 No / Unsure 07/26/2021 10:19 AM CDT documented as of this encounter Miscellaneous Notes * Telephone Encounter - Debo Gipson RN - 07/26/2021 11:05 AM CDT Orders placed, routed to Insect Control Aide Staff. * Telephone Encounter - Alexsandra Armendariz - 07/26/2021 10:50 AM CDT [facility] Call Center Phone Message May a detailed message be left on voicemail: yes Reason for Call: Other: New OB Ultrsound scheduled for 08/12/21; therefore, please put in orders for ultrasound. Thank you! Action Taken: Message routed to: Other: Nely OPERATIONS ANALYST Travel Screening: Not Applicable documented in this encounter Plan of Treatment Not on file documented as of this encounter Visit Diagnoses Diagnosis test positive- Primary examination or test, positive result documented in this encounter Care Teams Oil Well Service Operator Helper Relationship Specialty [place] [address] [place] [address] PCP - General Family Practice 11/12/14 Aisha Patel APRN CNM [address] [place] [address] Certified Nurse Parking Manager [employer] group leader 07/26/21 Otilia Rubio APRN CNM [address] [place], [place] [id number] Assigned OBGYN Provider 09/12/21 Aisha Patel APRN CNM [address] [facility] [address] [place] [address] Assigned OBGYN Provider 08/22/2109/11 documented as of this encounter
--- OUTSIDE RECORDS SUMMARY | 2024-12-23 07:13 | XMS_ITS | Clinical Summary ---
Author Organization [facility] Address [address] [place] [address]. [place] [address] Care Team Providers Care Machining Technician Name Role Phone Felipe Phillips MD Primary Care Provider [phone] Amanda, Aisha Mccain APRN CNM Unavailable Allergies No known active allergies Medications Vit-Fe Fumarate-FA ( MULTIVITAMIN W/IRON) 27-0.8 MG tablet Take 1 tablet by mouth daily Active cholecalciferol (VITAMIN D3) 125 mcg (5000 units) capsuleIndication s:Vitamin D deficiency Take 1 capsule (125 mcg) by mouth daily Take one capsule daily. 90 capsule 3 Active Active Problems Problem Noted Date Diagnosed Date Hx of delivery by vacuum extraction, currently p regnant 08/19/2021 Overview (08/19/2021): First in [place], very dense epidural, unable to push effectively and probably FHT concerns, 40 min 2nd stage. Baby 8#3oz BMI 40.0-44.9, adult 08/19/2021 Overview (08/19/2021): Plan early GCT Normal in first trimester 08/12/2021 Overview (08/12/2021): [facility] CNM pt Partner's name: Dhruv Guallpa [x ] NOB folder [x ] Dating [x ] First tri screen declined [x ] QS/AFP declined [x ] anatomy US ordered [ ] Rubella immune [ ] Hep B immune/nonimmune [ ] Pap [ ] Started ASA [ ] NO YES plan utox in labor [ ] COVID vaccine completed [ ] EOB folder [ ] PP Contraception plan: If tubal,consent date: [ ] Labor plans: [ ] Extension Specialist: [ ] Infant feeding plan [ ] FLU shot [ ] TDAP given [ ] Rhogam if needed, date: [ ] TOLAC consent done [ ] Waterbirth declines, consent done [ ] GCT, passed [ ] OTC PP meds sent [ ] Planning CS-ERAS pkt Resolved Problems Problem Noted Date Diagnosed Date Resolved Date Dysmenorrhea 12/08/2016 08/19/2021 Fatigue 11/12/2014 08/19/2021 Immunization deficiency 04/09/201401/2021 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 Immunizations Name Administration Dates Next Due Comvax (HIB/HepB) 05/03/1999 DTAP (<7y) 04/08/2004, 9,05/03/1999, 9 HEPA 12/08/2016 HEPATITIS A (PEDS 12M-18Y) 12/08/2016 HIB (PRP-T) 12/31/1999,05/03/1999,03/01/1999 HIB, Unspecified 12/31/1999,03/01/1999 HPV 12/08/2016,05/23/2014,05/27/2011 06/27/2011 HPV Quadrivalent 05/23/2014,05/27/2011 HepB 12/31/1999,05/03/1999,03/01/1999 HepB, Unspecified 12/31/1999,03/01/1999 Hpv, Unspecified 12/08/2016 Influenza (prior to 2023) 08/19/2017 MMR 04/08/2004,12/31/1999 Meningococcal ACWY (Menactra ) 05/23/2014 Meningococcal ACWY (Menveo ) 05/23/2014 Polio, Unspecified 03/01/1999 Poliovirus, inactivated (IPV) 04/08/2004, 999,03/01/1999 Rotavirus, Pentavalent 03/01/1999 TDAP Vaccine (Adacel) 05/27/2011 Varicella 06/08/2007,12/31/1999 Family History Medical History Relation Comments Coronary Artery Disease Father No Known Problems Mother No Known Problems Sister 1 No Known Problems Sister 2 Breast Cancer No family hx of Cerebrovascular Disease No family hx of Diabetes No family hx of Hyperlipidemia No family hx of Relation Status Comments Father Alive Mother Alive Sister 1 Alive Sister 2 Alive Social History Tobacco Use Types Packs/Day Years Used Date Smoking Tobacco: Never Smokeless Tobacco: Never Alcohol Use Standard Drinks/Week Comments No 0 (1 standard drink = 0.6 oz pur e alcohol) PHQ-2 Answer Date Recorded PHQ-2 Score 0 08/12/2021 Adolescent Education Answer Date Record ed Getting School Help Needed Not on file 08/01 Comments No Sex and Gender Information Value Date Recorded Sex Assigned at Not on file Legal Sex Female 4:48 AM ANALYST MARKET INTELLIGENCE Gender Identity Not on file Sexual Orientation Not on file 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 Industry 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 Not on file Not on file Not on f ile Last Filed Vital Signs Vital Sign Reading Time Taken Comments Blood Pressure 96/67 09/02/2021 9:55 AM ANALYST MARKET INTELLIGENCE Pulse 83 09/02/2021 9:55 AM ANALYST MARKET INTELLIGENCE Temperature 36.6 C (97.8 F) 04/17/2017 1:22 PM CDT Respiratory Rate 12 04/17/2017 1:22 PM CDT Oxygen Saturation 98% 04/17/2017 1:22 PM CDT Inhaled Oxygen Concentration - - Weight 104.8 kg (231 lb) 09/02/2021 9:55 AM ANALYST MARKET INTELLIGENCE Height 154.9 cm (5' 0.98) 09/02/2021 9:55 AM CS T Body Mass Index 43.67 09/02/2021 9:55 AM ANALYST MARKET INTELLIGENCE Plan of Treatment Not on file Insurance [employer] [facility] Care Teams Machining Technician Relationship Specialty [place] [address] [place] [address] PCP - General Family Practice 11/12/14 Aisha Patel APRN CNM [address] [address] Certified Nurse Visual C Developer printed circuit board assembler 07/26/21
--- OUTSIDE RECORDS SUMMARY | 2024-12-23 07:13 | XMS_ITS | Encounter Summary ---
Author Organization [facility] Address [facility] [place] [address] Care Team Providers Care Archery Equipment Repairer Name Role Phone Felipe Phillips MD Primary Care Provider [phone] Aisha Ptael APRN CNM Unavailable Otilia Rubio APRN CNM Unavailable [phone] Aisha Patel PHOTOGRAPHER HELPER CNM Unavailable Encounter Details Date Type Department Care Team (Latest Contact Info) Description 08/13/2021 Transcribe [facility] [place] [address] [place] [address] Aisha Patel APRN CNM [address] [place] [address] related condition, antepartum (Primary Dx) Social History Tobacco Use Types Packs/Day Years Used Date Smoking Tobacco: Never Smokeless Tobacco: Never Alcohol Use Standard Drinks/Week Comments No 0 (1 standard drink = 0.6 oz pur e alcohol) PHQ-2 Answer Date Recorded PHQ-2 Score 0 08/12/2021 Comments Yes Sex and Gender Information Value Date Recorded Sex Assigned at Not on file Legal Sex Female 4:48 AM BOOM STORAGE Gender Identity Not on file Sexual Orientation Not on file COVID-19 Exposure Response Date Recorded In the last month, have you been in contact with someone who was confirmed or suspected to have Coronavirus / COVID-19? No / Unsure 08/12/2021 10:33 AM CDT documented as of this encounter Plan of Treatment Not on file documented as of this encounter Visit Diagnoses Diagnosis related condition, antepartum- Primary documented in this encounter Additional Health Concerns Assessment Noted Time PHQ-9 Depression Total Score: 0 08/12/20 12:58 PM CDT documented as of this encounter Care Teams Archery Equipment Repairer Relationship Specialty [place] [address] [place] [address] PCP - General Family Practice 11/12/14 Aisha Patel APRN CNM [address] [place] [address] Certified Nurse Neon Light Installer gum worker 07/26/21 Otilia Rubio APRN CNM [address] [place] [address] Assigned OBGYN Provider 09/12/21 Aisha Patel APRN CNM [address] [place] [address] Assigned OBGYN Provider 08/22/2109/11 documented as of this encounter
--- OUTSIDE RECORDS SUMMARY | 2024-12-23 07:13 | XMS_ITS | Clinical Summary ---
Author Organization [employer] [facility] Address [address] [place] [id number] Care Team Providers Care Bottom Scrubber Name Role Phone Pcp, No Primary Care Provider Unavailabl e Allergies No known active allergies Medications Breast Pump PurchaseIndicati ons: (normal spontaneous vaginal delivery) Electric breast pump for home use. Gestational age at delivery: 41 weeks. Reason for need: lactating. Length of need: 99 months (lifetime use) 1 Each 2 Active Active Problems Problem Noted Date Diagnosed Date Liveborn infant 03/15/2022 (normal spontaneous vaginal delivery) 03/15 Second degree laceration of perineum, delivered, current hospitalization 03/15/2022 Periurethral laceration, delivered, current hosp italization 03/15/2022 Club foot, , affecting care of mother, antepartum, single gestation 01/28/2022 Overview (01/28/2022): US OB FOLLOW UP PER FETUS: 01/28/22 Referred By: ZULEIMA BERMUDEZ CNM INDICATION:Clubbed feet Indications Code 34 weeks gestation of Z3A.34 Morbid Obesity - BMI >40 Declined serum screening 10/22 Targeted ultrasound EFW: 38% 01/28/22 MPP Interval growth with BPP: Normal growth (54%/EFW)/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 presentation is Cephalic. EFW 2574 grams, percentile: 54. Growth parameters and estimated weight were appropriate for gestational age. Normal Deepest Vertical Pocket of amniotic fluid: 3.99 cm. Placental location: Right Lateral There is no evidence of placenta previa Normal transabdominal cervical length. The following abnormality was reaffirmed today: Multiple imaging angles of the right foot appear to be clubbed. RECOMMENDATIONS: -Return to primary provider for continued care. -DESNEY will be contacted by the nurses at the [facility] to arrange / pediatric orthopedic consult. -Continue with weekly testing with primary OB providers (BMI > 40) -No further ultrasound assessment will be needed prior to delivery MPP Supervision of high-risk Overview (01/24/2022): MPP TESTING ONLY NEXT VISIT ALERTS: PLANS & FUTURE APPOINTMENTS: TESTING PLAN: Weekly - Testing: Through 01/28/22 GROWTH PLAN: - Growth: Next DELIVERY PLAN: 39wks - Scheduled delivery: - Preferred delivery location: PRIMARY DIAGNOSIS: 21 y.o. Estimated Date of Delivery: 03/06/22 BMI 43 2020 VAVD (IOL for postdates) LAST GROWTH: 01/28/22 34w5d 12/17/21 28w5d EFW 1363 grams, percentile: 56. 10/22/21 20w5d EFW 361 grams, percentile: 38. ECHO: 10/22/21 Normal echo REFERRING PHYSICIAN/PHONE/LAST UPDATE: Zuleima Bentley CNM - [place] Primary MD approves scheduling of recommended ultrasounds/testing: Yes SPECIALISTS/CONSULTS: Include: Specialty MD Clinic Name Phone# [place] and ADDED TO PATIENT CARE TEAM Yes GENETICS: Declined IF FGR <10% or EFW <2000 grams: Add FGRPCOM CARE COORDINATION: Needs H&P 30 days prior to delivery if MPP doing delivery PERTINENT LABS: PERTINENT MEDS: PLAN OF CARE: 12/17/21 ML -Return to primary OB provider for continued care. -Delivery recommended at 39 weeks due to BMI >40 -No medication changes are indicated. -Recommend weekly testing starting at 32 weeks due to BMI >40 -Follow up growth at 34 weeks -Follow up appointments for Ultrasound only were scheduled in our office today. Maternal morbid obesity in third trimester, ante 12/17/2021 Nonimmune to hepatitis B virus 09/29/2021 Plan 09/29/2021 Overview (02/25/2022): & Preferences Estimated Date of Delivery: 03/06/22 Partner: Dhruv Other children: Son May - will be 1 Baby's sex/name: boy Pronouns: she/her, he/him Preparations Patient learning style: hands on Partner learning style: reading and doing on his own Language(s): [place]er Childbirth Edu: has class scheduled through [facility]: Plans delivery at [facility], [facility] if on divert Labor Preferences Labor support person(s): Dhruv and a mini, looking for a new one, previous had a family member. Goals for Labor/: not getting induced ideally, would do a membrane sweep, avoid pitocin in labor, ok with active management, avoid C-, ok if medical transfusion indicated, has a transcutaneous electrical nerve stimulation unit, open to nitrous How we can help: communication Fears: How we can help: with changes, details in communication, time to make the decision, partnership in communication Water : [not eligible] BMI > 35 IV in labor: lock recommended Labs at admission: T&S with HGB Pain management plan: does not desire another epidural - poor experience & Immediate [id number]/Delayed cord clamping: yes Help catch?: Mom Who will cut cord?: Dhruv Announce baby's sex: male Plans for placenta: encapsulation Baby meds: eye yes, vit K yes, hep B No feeding plan: . breast pump: would like one at discharge Brown Stock Washer: [facility] Circumcision: NO control: Condoms - PP tubal ligation: n/a Maternal immunizations: tdap declines, COVID-19 completed, flu due during the season PP discharge plannin-36 hours discharge, off work [employer], support mom and sisterDhruv will get two weeks, paternity leave Short interval between pregn ancies affecting , antepartum 09/29/2021 BMI 40.0-44.9, adult 08/19/2021 Overview (09/29/2021): Pre BMI 43.67 Hx of delivery by vacuum extraction, currently p regnant 08/19/2021 Overview (09/29/2021): First in [place], very dense epidural, unable to push effectively and probably FHT concerns, 40 min 2nd stage. Baby 8#3oz Supervision of high-risk , third trimes ter 08/12/2021 Overview (03/11/2022): Partner's name: Dhruv Guallpa [x ] First tri screen declined [x ] QS/AFP declined HIGH RISK Pre BMI 43.37 Close interval POC Level II anatomy/echo Weekly testing starting at 32w (declines) Discuss IOL at 39w (declines) Transfer Labs - [facility] 09/02/2021 Blood type: A Positive AB screen: Negative CBC: hgb 12.1 Plt 295 RPR/Trep: NR HBsAg: NR Rubella: Immune HIV: NR Urine: *ordered at IOB GC/CT: Negative Early glucose: 85 HgbA1C: 5.2 Vitamin D: 12 08/12/2021: 10w4d, SAURAV 03/06/2022 Post term at 41 weeks gestation Resolved Problems Problem Noted Date Diagnosed Date Resolved Date Choroid plexus cysts, , affecting care of mother, antepartum 01/28/2022 Immunizations Immunization Administration Dates Next Due HIB-HepB (Comvax) 05/03/1999 HPV 9 (Gardasil 9) 12/08/2016,05/23/2014, 011 Hepatitis A (Peds) 12/08/2016 Hepatitis B, Unspecified 12/31/1999,03/01/1999 Inactivated Polio Vaccine 04/08/2004,05/03/1999, 03/01/1999 MENINGOCOCCAL VACCINE 2 VIAL 2MO-55YO (MENVEO) 05/23/2014 MMR 04/08/2004,12/31/1999 Meningococcal Vaccine (Menactra) 05/23/2014 Rotavirus Pentavalent (ROTATEQ) 03/01/1999 Tdap 05/27/2011 Varicella Vaccine 06/08/2007,12/31/1999 Family History Medical History Relation Name Comments Alcoholism Father Heart Disease Father Heart attack Father Depression Maternal Grandmother Good Health Mother Alcoholism Paternal Grandfather Liver disease Paternal Grandfather defects No Family History Cancer-breast No Family History Cancer-colon No Family History Congenital heart disease No Family History Diabetes No Family History Unexplained No Family History Relation Name Status Comments Father Alive Maternal Grandfather Alive Maternal Grandmother Alive Mother Alive Paternal Grandfather Paternal Grandmother Alive Sister 1 Alive Sister 2 Alive Social History Tobacco Use Types Packs/Day Years Used Date Smoking Tobacco: Never Smokeless Tobacco: Never Alcohol Use Standard Drinks/Week Comments Never 0 (1 standard drink = 0.6 oz pur e alcohol) PHQ-2 Answer Date Recorded PHQ-2 TOTAL SCORE 0 07/21/2022 Social Connections Answer Date Recorded Frequency of Communication with Friends and Fami ly Not on file 10/16/2021 Financial Resource Strain Answer Date R ecorded Difficulty of Paying Living Expenses Not on file 10/16/2021 Difficulty of Paying Living Expenses Not on file 10/16/2021 Comments No Sex and Gender Information Value Date Recorded Sex Assigned at Not on file Legal Sex Female 5:42 AM EXPLOSIVES WORKER Gender Identity Not on file Sexual Orientation Not on file Occupation Industry Job Start Date Job End Date stay at home Not on file Not on file Not on file Obstetrics History Para Term AB IAB SAB Ectopic Multiple Livin g Live Births 2 2 2 0 2 2 Date Outcome GA Total Labor Labor/2nd/3rd Weight Sex Type Anes PTL Coni A1 A5 Name Clin 2020 Term 41w 1d 0h 40m/ 3.71 kg (8 lb 3 oz) M Vag-Va cuum Epidu ral,E pidur al N Livin g May Complications:None,Direct oc ciput posterior presentation of fetus Delivery Location:[facility] [place] Comments:Post dates IO L. Cytotec and aden balloon. Then pitocin. [place] effective epidural, unable to change positions. Reports high epidural - to neck. Possible FHT indications. Nuchal cord x2, vaccum extraction 2021 Term 41w 2d 1471h 18m 7h 52m/0h 11m/0h 15m 3.85 kg (8 lb 7.8 oz) M VAGINA L SRAVANI Local ,O[place] N Livin g 8 9 Zuleima Roy CNM Complications:Umbilical cord around neck Delivery Location[facility] ( [address]) Comments:admit /-2 , IOL pitocin max of 6mu/min, QBL 250cc Last Filed Vital Signs Vital Sign Reading Time Taken Comments Blood Pressure 90/60 08/13/2022 10:33 AM CDT Pulse 66 08/13/2022 10:33 AM CDT Temperature 36.1 C (97 F) 08/13/2022 10:33 AM CDT Respiratory Rate 16 08/13/2022 10:3 3 AM CDT Oxygen Saturation 98% 08/13/2022 10: 33 AM CDT Inhaled Oxygen Concentration - - Weight 110.3 kg (243 lb 1.6 oz) 022 10:29 AM CDT Height 154.9 cm (5' 1) 02/11/2022 10:0 9 AM CDT Body Mass Index 45.93 02/11/2022 10:09 AM CDT Plan of Treatment Health Maintenance Due Date Last Done Comments HIV for age 15-65 2013 Hepatitis C screening for age 18-79 2016 Tetanus booster 05/27/2021 05/27/2011 BMI (ht and wt on same day) for age 18+ 02/11/2023 02/11/2022, 01/28/2022, 01/14/2022, Additional history exists Pap test for age 21-65 06/25/2023 0 ([facility]) Depression screening for age 12+ 07/21/2023 07/21/2022, 03/28/2022, 03/04/2022, Additional history exists (IA) Influenza for age 9-49 06/16/2024 COVID-19 vaccine series ( season) 2024 Tdap Completed 05/27/2011 HPV series for age 9-26 Completed 12/08/19 17, 05/23/2014, 05/27/2011 Pneumococcal series for age 6-49 Aged Out No longer eligible based on patient's age to complete this topic Insurance [id number] [place] [id number] [facility] [employer] OF [employer] [place] BLUE [facility] Advance Directives * Full Code (Latest Code Status on File) Date Activated Date Inactivated Comments 03/14/2022 5:29 PM 03/16/2022 4:27 PM Question Answer Comments Code Status Discussion: Reviewed Preferences Care Teams Bottom Scrubber Relationship Specialty Start Date End Date Pcp, No . PCP - General 09/14/21
== END 2024-12-23 07:28 | disposition home or self-care (01) ==
PROVIDERS: Emergency Provider Family Medicine
DX: E86.0 Dehydration (principal); E87.6 Hypokalemia; R19.7 Diarrhea, unspecified; R20.2 Paresthesia of skin
CPT/HCPCS: 36415; 80048; 85018; 96374; 99284; J2405; J7030